=== PATIENT | male | born 1995 | race Caucasian/White ===

== ENCOUNTER 2017-02-25 11:58 | Emergency (ER) | payer OTHER ==
[~2017-02-25] VITALS: Ht 182.9 cm; Wt 101.5 kg
[2017-02-25 12:10] VITALS: BP 174/77
[2017-02-25] MEDS ORDERED: MOTRIN800 MG PO (13:40)
[2017-02-25] MEDS ORDERED: CLINDAMYCIN HC300 MG PO (13:40)
== END 2017-02-25 13:57 | disposition home or self-care (01) ==
LOC: EME 11:58
PROC: 0C9P3ZZ Drainage of Tonsils, Percutaneous Approach (ICD-10-PCS; principal; 2017-02-25)
DX: J36 Peritonsillar abscess (principal)
CPT/HCPCS: 87651 90; 99281; 99284